=== PATIENT | female | born 1940 | race Caucasian/White ===

== ENCOUNTER 2022-04-29 21:57 | Emergency (ER) | payer OTHER ==
[2022-04-29 22:31] VITALS: BP 110/64; PULSE 77; RESP 20; TEMP 98.3; BMI 22.1
[2022-04-29] MEDS ORDERED: ACETAMINOPHEN 500 MG TABLET (FP) PO ONE (23:24)
[2022-04-29] MEDS ORDERED: LIDOCAINE 5% TOPICAL PATCH TP ONE (23:24)
[2022-04-29] MEDS ORDERED: ACETAMINOPHEN 325 MG TABLET (FP) ONE (23:38)
[2022-04-29] MEDS ORDERED: LIDOCAINE 5% TOPICAL PATCH ONE (23:38)
[2022-04-30] MEDS ORDERED: LIDOCAINE PATCH REMOVAL MC ONE (12:00)
== END 2022-04-30 00:56 | disposition home or self-care (01) ==
LOC: JER 21:57
DX: M54.2 Cervicalgia (principal); V89.2XXA Person injured in unspecified motor-vehicle accident, traffic, initial encounter
CPT/HCPCS: 70450-TC; 71045-TC-FY; 72125-TC; 72170-TC-FY; 99285-25